=== PATIENT | male | born 1975 | race Caucasian/White ===

== ENCOUNTER 2024-02-08 00:19 | Day surgery (SDC) | payer BC, SELFPAY ==
[2024-02-01 08:26] VITALS: BMI 43.9
[2024-02-08 07:47] VITALS: BP 141/76; PULSE 77; RESP 18; TEMP 36.2; O2SAT 99
[2024-02-08] MEDS: LACTATED RINGERS 1,000 ML 150 ML IV CONT (07:57)
--- NOTE | 2024-02-08 08:10 | WPDANESEPPF ---
Anes - Initial Pre Proc Eval Procedure: Operation Date: 02/08/24 09:00 Proposed Procedures p Screening Colonoscopy - Sawyer Carey MD Date/Time: 02/08/24 08:10 Surgeon: Sawyer Carey MD Pre Op Diagnosis: neoplasm screening Patient Data Age: 48 Gender: M Height: 1.8 m Weight: 148.9 kg Last Vital Signs Temp 97.2 F L 02/08/24 07:47 Pulse 77 02/08/24 07:47 Resp 18 02/08/24 07:47 BP 141/76 H 02/08/24 07:47 Pulse Ox 99 02/08/24 07:47 O2 Del Method Room Air 02/08/24 07:47 Allergies Allergy/AdvReac Type Severity Reaction Status Date / Time No Known Allergies Allergy Verified 02/08/24 07:46 Home Medications Medication Instructions Recorded Confirmed Type phentermine 37.5 mg capsule 37.5 mg PO DAILY #30 caps 11/22/23 02/08/24 Rx Patient hx anesthesia problems: none Family hx anesthesia problems: none Results Review: All pre-operative results and documents have been reviewed as part of the pre-operative evaluation. [facility] Past Medical History Medical History (Updated 11/22/23 @ 14:39 by Samir Rocha MD) Marlene (2018) Also 2019 Social History Social History Smoking status: Never smoker Alcohol intake: never Substance use: never Substance use type: does not use Living arrangements: with family Spiritual care concerns: No Anes - Eval Final PreProcedure Day of Procedure 02/08/24 08:10 Patient weight: morbidly obese Heart: regular rate and rhythm Lungs: clear to auscultation Airway: Mallampati scale class III Neurological: alert and oriented Last oral intake: >/= 8 hours ASA classification: III Emergent: no Anesthetic plan: proceed Anesthesia type and monitoring: general GIVS and standard monitoring Results Review: All pre-operative results and documents have been reviewed as part of the pre-operative evaluation. Informed Consent: The patient's anesthetic plan and its attendant risks and benefits were discussed with the patient/family/POA. Questions were solicited and answers provided to the satisfaction of the patient/family/POA.
--- NOTE | 2024-02-08 08:44 | PM.HPGS ---
History of Present Illness History of Present Illness Consent: Risks, benefits, and alternatives have been discussed and questions answered. Patient agrees to proceed with procedure. Chief complaint: neoplasm screening Narrative: Melquiades Rinaldi is a 48 year old male here for first screening colonoscopy Review of Systems Review of Systems: All systems reviewed & are unremarkable except as noted in HPI and below PMFSH Past Medical History Medical History (Updated 02/08/24 @ 08:47 by Sawyer Carey MD) Colon cancer screening Marlene (2018) Also 2019 Social History Social History Smoking status: Never smoker Alcohol intake: never Substance use: never Substance use type: does not use Living arrangements: with family Spiritual care concerns: No Meds Home Medications and Allergies Home Medications Medication Instructions Recorded Confirmed Type phentermine 37.5 mg capsule 37.5 mg PO DAILY #30 caps 11/22/23 02/08/24 Rx Allergies Allergy/AdvReac Type Severity Reaction Status Date / Time No Known Allergies Allergy Verified 02/08/24 07:46 Vital Signs Vital Signs - 24 hr 02/08/24 07:47 Temperature 97.2 F L Pulse Rate 77 Respiratory Rate 18 Blood Pressure 141/76 H Pulse Oximetry 99 Oxygen Delivery Room Air Exam Const: General: comfortable and no acute distress HENMT: Face/Nose/Sinus: Normal nares present Eyes: General: appearance normal, both eyes and all related structures Neck: Neck: no JVD Resp: Auscultation: clear to auscultation bilaterally Cardio: Rate: regular rate Rhythm: regular rhythm GI: Inspection: non-distended GI Palp: Yes Soft to palpation Skin: General skin exam: normal color Neuro: General: gait normal Speech: normal speech Extrem: General: normal to inspection Psych: Mental Status: mental status grossly normal Assessment and Plan Assessment and plan (1) Colon cancer screening: Code(s): Z12.11 - Encounter for screening for malignant neoplasm of colon Status: Acute Assessment and Plan: colonoscopy
[2024-02-08 09:22] VITALS: BP 130/73; PULSE 73; RESP 18; O2SAT 98
[2024-02-08 09:32] VITALS: BP 121/76; PULSE 74; RESP 22; O2SAT 99
[2024-02-08 09:42] VITALS: BP 122/75; PULSE 72; RESP 27; O2SAT 99
== END 2024-02-08 09:46 | disposition home or self-care (01) ==
PROVIDERS: PCP Family Medicine Adolescent Medicine; Visit Provider Internal Medicine Gastroenterology
PROC: 0DJD8ZZ Inspection of Lower Intestinal Tract, Via Natural or Artificial Opening Endoscopic (ICD-10-PCS; CPT 45378; principal; 2024-02-08 09:00)
DX: Z12.11 Encounter for screening for malignant neoplasm of colon (principal); D12.4 Benign neoplasm of descending colon; E66.01 Morbid (severe) obesity due to excess calories; Z68.42 Body mass index [BMI] 45.0-49.9, adult
CPT/HCPCS: 45385; 88305; J7120